=== PATIENT | female | born 1945 | race Caucasian/White ===

== ENCOUNTER → 2016-09-07 | Outpatient (CLI) | payer MEDICARE ==
[~2016-09-07] MED LIST: AMBIEN10 M1 PO; DARVOCET N 1001 TAB PO; DIFLUCAN200 MG PO; HYDROCODONE BIT1 T11 PO; SEPTRA DS 800 M1 TAB PO; Synthroid,Lev150 MCG PO; ZESTRIL10 MG PO
[2016-09-07 13:23] LABS: BASO # 0.1 10*3/uL (0.0-0.1); BASO % 0.8 % (0.0-1.0); EOS # 0.2 10*3/uL (0.0-0.4); EOS % 2.7 % (1.0-4.0); HEMATOCRIT 42.1 % (37.0-47.0); HEMOGLOBIN 13.4 g/dl (12.0-16.0); LYMPH # 2.1 10*3/uL (1.3-4.4); LYMPH % 34.6 % (27.0-41.0); MEAN CELL VOLUME 90.5 fl (81.0-99.0); MEAN CORPUSCULAR HGB 28.8 pg (27.0-31.0); MEAN CORPUSCULAR HGB CONC 31.8 g/dl (33.0-37.0); MEAN PLATELET VOLUME 10.3 fl (9.6-12.3); MONO # 0.4 10*3/uL (0.1-1.0); MONO % 7.2 % (3.0-9.0); NEUT # 3.3 10*3/uL (2.3-7.9); NEUT % 54.7 % (47.0-73.0); PLATELET COUNT AUTOMATED 224 10*3/uL (130-400); RED BLOOD COUNT 4.65 10*6/uL (4.10-5.10); RED CELL DISTRI WIDTH 13.3 % (0-14.5)
[2016-09-07 14:00] LABS: ALBUMIN 3.4 gm/dl (3.1-4.5); ALKALINE PHOSPHATASE 63 U/L (45-117); BILIRUBIN, TOTAL 0.3 mg/dl (0.2-1.0); BUN 12 mg/dl (7-24); CARBON DIOXIDE 27 mmol/L (21-32); CHLORIDE 108 mmol/L (98-107); CHOLESTEROL 180 mg/dL (<200); EST GLOM FILT AFRICAN AMERICAN > 60 ml/min; GLUCOSE 100 mg/dL (65-99); HDL CHOLESTEROL 52 mg/dl (40-60); LDL CHOLESTEROL 108 mg/dL (9-159); SGOT/AST 16 IU/L (3-35); SGPT/ALT 15 U/L (12-78); SODIUM 142 mmol/L (136-145); TOTAL PROTEIN 7.5 gm/dL (6.4-8.2); TRIGLYCERIDES 101 mg/dl (<150); VLDL CHOLESTEROL 20 mg/dL (6-40)
[2016-09-07 14:03] LABS: HEMOGLOBIN A1c 5.8 % (4.8-5.6)
== END | disposition home or self-care (01) ==
LOC: LAB 13:05
PROVIDERS: Family Medicine
DX: Z00.00 Encounter for general adult medical examination without abnormal findings (principal); E03.9 Hypothyroidism, unspecified; Z79.899 Other long term (current) drug therapy; Z85.3 Personal history of malignant neoplasm of breast; E66.9 Obesity, unspecified

== ENCOUNTER 2017-08-12 22:59 | Inpatient (IN) | payer MEDICARE ==
[~2017-08-12] VITALS: Ht 162.5 cm; Wt 107.7 kg
--- NOTE | ~2017-08-12 | EKG ---
[place], [place] ELECTROCARDIOGRAM REPORT NAME: ARNOLDO LAWTON UNIT #: [id number] ROOM: 522 DOCTOR: NEAL CLARKE,AJ BIRTHDATE: [birth year] DOS: 08/12/2017 TIME: 2302 hours. IMPRESSION: 1. Sinus rhythm. 2. Left ventricular hypertrophy. 3. Nondiagnostic Q-waves in the lateral leads. 4. Normal QT interval. AJ DE JESUS MD CM:EKGRPT:ELECTROCARDIOGRAM REPORT 1030 1058 AJ DE JESUS MD
--- NOTE | ~2017-08-12 | EKG ---
[place], [place] ELECTROCARDIOGRAM REPORT NAME: ARNOLDO LAWTON UNIT #: [id number] ROOM: 522 DOCTOR: NEAL CLARKE,AJ BIRTHDATE: [birth year] DOS: 08/13/2017 TIME: 5:35 a.m. IMPRESSION: 1. Sinus rhythm. 2. Baseline artifacts. 3. Nonspecific ST-T changes. AJ DE JESUS MD CM:EKGRPT:ELECTROCARDIOGRAM REPORT 1031 1055 AJ DE JESUS MD
--- NOTE | ~2017-08-12 | EKG ---
[place], [place] ELECTROCARDIOGRAM REPORT NAME: ARNOLDO LAWTON UNIT #: [id number] ROOM: 522 DOCTOR: NEAL CLARKE,AJ BIRTHDATE: [birth year] DOS: 08/13/2017 TIME: 2:16 a.m. IMPRESSION: 1. Sinus rhythm. 2. Left ventricular hypertrophy. 3. Sinus bradycardia. 4. Nonspecific ST-T changes. AJ DE JESUS MD CM:EKGRPT:ELECTROCARDIOGRAM REPORT 1032 1056 AJ DE JESUS MD
[2017-08-12 22:59] VITALS: BP 169/75
[2017-08-12 23:33] LABS: BASO # 0.1 10*3/uL (0.0-0.1); BASO % 0.7 % (0.0-1.0); EOS # 0.2 10*3/uL (0.0-0.4); EOS % 2.9 % (1.0-4.0); HEMATOCRIT 38.7 % (37.0-47.0); HEMOGLOBIN 12.5 g/dl (12.0-16.0); LYMPH % 39.4 % (27.0-41.0); MEAN CELL VOLUME 87.6 fl (81.0-99.0); MEAN CORPUSCULAR HGB 28.3 pg (27.0-31.0); MEAN CORPUSCULAR HGB CONC 32.3 g/dl (33.0-37.0); MEAN PLATELET VOLUME 10.3 fl (9.6-12.3); MONO # 0.7 10*3/uL (0.1-1.0); MONO % 9.2 % (3.0-9.0); NEUT # 3.6 10*3/uL (2.3-7.9); NEUT % 47.7 % (47.0-73.0); PLATELET COUNT AUTOMATED 246 10*3/uL (130-400); RED BLOOD COUNT 4.42 10*6/uL (4.10-5.10); RED CELL DISTRI WIDTH 13.3 % (0-14.5); WHITE BLOOD COUNT 7.5 10*3/uL (4.8-10.8)
[2017-08-12 23:41] LABS: ACT PARTIAL THROMBO TIME 23.7 SECONDS (20.8-31.5); INTERNATIONAL NORM RATIO 0.9 (2.0-3.5)
[2017-08-12 23:49] LABS: ALBUMIN 3.7 gm/dl (3.1-4.5); ALKALINE PHOSPHATASE 64 U/L (45-117); BUN 16 mg/dl (7-24); CHLORIDE 108 mmol/L (98-107); CREATININE 0.91 mg/dL (0.55-1.02); SGOT/AST 19 IU/L (3-35); SGPT/ALT 14 U/L (12-78); SODIUM 142 mmol/L (136-145); TOTAL PROTEIN 7.6 gm/dL (6.4-8.2)
[2017-08-12 23:50] LABS: TROPONIN I < 0.015 ng/ml (<0.045)
[2017-08-13 01:14] VITALS: BP 132/63
[2017-08-13 01:33] VITALS: BP 133/86
[2017-08-13] MEDS ORDERED: PAROXETINE20 MG PO (02:44)
[2017-08-13 05:54] LABS: BASO # 0.1 10*3/uL (0.0-0.1); BASO % 0.8 % (0.0-1.0); EOS # 0.2 10*3/uL (0.0-0.4); EOS % 3.3 % (1.0-4.0); HEMATOCRIT 38.7 % (37.0-47.0); HEMOGLOBIN 12.2 g/dl (12.0-16.0); LYMPH # 2.8 10*3/uL (1.3-4.4); LYMPH % 44.5 % (27.0-41.0); MEAN CORPUSCULAR HGB CONC 31.5 g/dl (33.0-37.0); MEAN PLATELET VOLUME 10.2 fl (9.6-12.3); MONO # 0.5 10*3/uL (0.1-1.0); MONO % 7.4 % (3.0-9.0); NEUT # 2.8 10*3/uL (2.3-7.9); NEUT % 43.7 % (47.0-73.0); PLATELET COUNT AUTOMATED 218 10*3/uL (130-400); RED BLOOD COUNT 4.35 10*6/uL (4.10-5.10); RED CELL DISTRI WIDTH 13.4 % (0-14.5); WHITE BLOOD COUNT 6.3 10*3/uL (4.8-10.8)
[2017-08-13 06:12] LABS: ALBUMIN 3.3 gm/dl (3.1-4.5); ALKALINE PHOSPHATASE 57 U/L (45-117); BUN 14 mg/dl (7-24); CHLORIDE 109 mmol/L (98-107); CHOLESTEROL 166 mg/dL (<200); CREATININE 0.88 mg/dL (0.55-1.02); FREE T4 1.38 ng/dl (0.76-1.46); HDL CHOLESTEROL 49 mg/dl (40-60); LDL CHOLESTEROL 100 mg/dL (9-159); PHOSPHOROUS 3.4 mg/dL (2.5-4.9); POTASSIUM 3.9 mmol/L (3.5-5.1); SGOT/AST 16 IU/L (3-35); SGPT/ALT 14 U/L (12-78); SODIUM 143 mmol/L (136-145); TOTAL PROTEIN 6.9 gm/dL (6.4-8.2); TRIGLYCERIDES 84 mg/dl (<150); VLDL CHOLESTEROL 17 mg/dL (6-40)
[2017-08-13 06:17] LABS: THYROID STIM HORMONE (HS) 0.647 uIU/ml (0.358-4.75)
[2017-08-13 08:00] VITALS: BP 122/77
[2017-08-13 12:00] VITALS: BP 131/66
[2017-08-13] MEDS ORDERED: NITROSTAT0.4 MG SL (13:56)
[2017-08-13] MEDS ORDERED: ASPIR LOW81 MG PO (13:56)
== END 2017-08-13 15:15 | disposition home or self-care (01) | DRG 392 ==
LOC: ED 22:59 → EDHOLD 23:54 → 5E 08-13 00:04
PROVIDERS: Family Medicine; Student in an Organized Health Care Education/Training Program
DX: K21.9 Gastro-esophageal reflux disease without esophagitis (principal); E83.41 Hypermagnesemia; E87.8 Other disorders of electrolyte and fluid balance, not elsewhere classified; E03.9 Hypothyroidism, unspecified; G47.00 Insomnia, unspecified; F33.42 Major depressive disorder, recurrent, in full remission; I10 Essential (primary) hypertension; G43.909 Migraine, unspecified, not intractable, without status migrainosus; Z85.3 Personal history of malignant neoplasm of breast; Z88.6 Allergy status to analgesic agent; Z88.8 Allergy status to other drugs, medicaments and biological substances; Z90.49 Acquired absence of other specified parts of digestive tract; Z87.891 Personal history of nicotine dependence; Z82.49 Family history of ischemic heart disease and other diseases of the circulatory system; Z79.82 Long term (current) use of aspirin; Z79.899 Other long term (current) drug therapy

== ENCOUNTER 2017-08-29 23:36 | Inpatient (IN) | payer MEDICARE ==
[~2017-08-29] VITALS: Ht 160 cm; Wt 104.3 kg
[~2017-08-29 23:36] MED LIST changes: +ASPIR LOW81 MG PO; +NITROSTAT0.4 MG SL; +PAROXETINE20 MG PO
[2017-08-29 23:50] VITALS: BP 113/58
[2017-08-30] VITALS (8 sets, daily range): BP systolic 98–138; BP diastolic 51–82
[2017-08-30 00:46] LABS: BASO % 0.3 % (0.0-1.0); HEMATOCRIT 39.1 % (37.0-47.0); HEMOGLOBIN 12.9 g/dl (12.0-16.0); LYMPH % 6.5 % (27.0-41.0); MEAN CELL VOLUME 88.1 fl (81.0-99.0); MEAN CORPUSCULAR HGB 29.1 pg (27.0-31.0); MEAN PLATELET VOLUME 10.3 fl (9.6-12.3); MONO # 1.1 10*3/uL (0.1-1.0); MONO % 7.3 % (3.0-9.0); NEUT # 12.9 10*3/uL (2.3-7.9); NEUT % 85.3 % (47.0-73.0); PLATELET COUNT AUTOMATED 184 10*3/uL (130-400); RED BLOOD COUNT 4.44 10*6/uL (4.10-5.10); RED CELL DISTRI WIDTH 13.8 % (0-14.5); WHITE BLOOD COUNT 15.1 10*3/uL (4.8-10.8)
[2017-08-30 01:06] LABS: ALBUMIN 3.1 gm/dl (3.1-4.5); CREATININE 1.19 mg/dL (0.55-1.02); POTASSIUM 3.6 mmol/L (3.5-5.1); TOTAL PROTEIN 7.5 gm/dL (6.4-8.2)
[2017-08-30 07:01] LABS: BASO % 0.2 % (0.0-1.0); HEMATOCRIT 36.8 % (37.0-47.0); LYMPH # 1.3 10*3/uL (1.3-4.4); LYMPH % 8.6 % (27.0-41.0); MEAN CELL VOLUME 86.8 fl (81.0-99.0); MEAN CORPUSCULAR HGB 28.3 pg (27.0-31.0); MEAN CORPUSCULAR HGB CONC 32.6 g/dl (33.0-37.0); MEAN PLATELET VOLUME 10.7 fl (9.6-12.3); MONO # 1.3 10*3/uL (0.1-1.0); MONO % 8.5 % (3.0-9.0); NEUT # 12.6 10*3/uL (2.3-7.9); PLATELET COUNT AUTOMATED 178 10*3/uL (130-400); RED BLOOD COUNT 4.24 10*6/uL (4.10-5.10); RED CELL DISTRI WIDTH 13.8 % (0-14.5); WHITE BLOOD COUNT 15.3 10*3/uL (4.8-10.8)
[2017-08-30 07:28] LABS: BILIRUBIN 1+ (NEGATIVE); BLOOD 1+ (NEGATIVE); CLARITY CLOUDY (CLEAR); COLOR YELLOW (YELLOW); GLUCOSE NEGATIVE (NEGATIVE); KETONE 1+ (NEGATIVE); LEUKO ESTERASE NEGATIVE (NEGATIVE); NITRITE NEGATIVE (NEGATIVE); PH 5.5 (5.0-9.0); SPECIFIC GRAVITY 1.025 (1.005-1.030)
[2017-08-30 07:33] LABS: CHLORIDE 100 mmol/L (98-107); POTASSIUM 3.4 mmol/L (3.5-5.1); SODIUM 135 mmol/L (136-145)
[2017-08-30 07:56] LABS: ALBUMIN 2.9 gm/dl (3.1-4.5); ALKALINE PHOSPHATASE 53 U/L (45-117); BUN 15 mg/dl (7-24); CHOLESTEROL 155 mg/dL (<200); CREATININE 1.05 mg/dL (0.55-1.02); FREE T4 1.77 ng/dl (0.76-1.46); HDL CHOLESTEROL 43 mg/dl (40-60); LDL CHOLESTEROL 87 mg/dL (9-159); PHOSPHOROUS 2.4 mg/dL (2.5-4.9); SGOT/AST 27 IU/L (3-35); SGPT/ALT 19 U/L (12-78); THYROID STIM HORMONE (HS) 0.444 uIU/ml (0.358-4.75); TOTAL PROTEIN 6.9 gm/dL (6.4-8.2); TRIGLYCERIDES 125 mg/dl (<150); VLDL CHOLESTEROL 25 mg/dL (6-40)
[2017-08-30 08:02] LABS: BACTERIA 1+; EPITHELIAL CELLS 15-20
[2017-08-30 08:13] LABS: VITAMIN D, 25-HYDROXY 12.5 ng/mL (30-100)
[2017-08-31] VITALS: BP 118/69
[2017-08-31 06:55] LABS: BASO # 0.1 10*3/uL (0.0-0.1); BASO % 0.6 % (0.0-1.0); EOS % 0.2 % (1.0-4.0); HEMATOCRIT 34.1 % (37.0-47.0); HEMOGLOBIN 10.9 g/dl (12.0-16.0); LYMPH # 1.4 10*3/uL (1.3-4.4); LYMPH % 12.8 % (27.0-41.0); MEAN CELL VOLUME 88.8 fl (81.0-99.0); MEAN CORPUSCULAR HGB 28.4 pg (27.0-31.0); MEAN PLATELET VOLUME 10.9 fl (9.6-12.3); MONO # 1.1 10*3/uL (0.1-1.0); MONO % 9.8 % (3.0-9.0); NEUT # 8.2 10*3/uL (2.3-7.9); NEUT % 76.1 % (47.0-73.0); PLATELET COUNT AUTOMATED 183 10*3/uL (130-400); RED BLOOD COUNT 3.84 10*6/uL (4.10-5.10); RED CELL DISTRI WIDTH 13.9 % (0-14.5); WHITE BLOOD COUNT 10.8 10*3/uL (4.8-10.8)
[2017-08-31 07:11] LABS: BUN 10 mg/dl (7-24); CHLORIDE 106 mmol/L (98-107); CREATININE 0.93 mg/dL (0.55-1.02); PHOSPHOROUS 2.2 mg/dL (2.5-4.9); POTASSIUM 3.6 mmol/L (3.5-5.1); SODIUM 139 mmol/L (136-145)
[2017-08-31 08:00] VITALS: BP 128/62
[2017-08-31 12:00] VITALS: BP 123/84
[2017-08-31] MEDS ORDERED: CIPRO500 MG PO (15:56)
[2017-08-31] MEDS ORDERED: FLAGYL500 MG PO (15:56)
[2017-08-31 16:00] VITALS: BP 112/59
[2017-08-31] MEDS ORDERED: VITAMIN D-32000 UNI1 PO (16:02)
== END 2017-08-31 19:29 | disposition home or self-care (01) | DRG 602 ==
LOC: ED 23:36 → EDHOLD 08-30 02:17 → 5E 08-30 02:17
PROVIDERS: Family Medicine; Hospitalist; Physician Assistant
DX: L03.116 Cellulitis of left lower limb (principal); N17.0 Acute kidney failure with tubular necrosis; E43 Unspecified severe protein-calorie malnutrition; K57.32 Diverticulitis of large intestine without perforation or abscess without bleeding; F33.9 Major depressive disorder, recurrent, unspecified; E83.39 Other disorders of phosphorus metabolism; Z68.41 Body mass index [BMI] 40.0-44.9, adult; K76.0 Fatty (change of) liver, not elsewhere classified; E87.6 Hypokalemia; G47.00 Insomnia, unspecified; N20.0 Calculus of kidney; D72.829 Elevated white blood cell count, unspecified; E03.9 Hypothyroidism, unspecified; K57.30 Diverticulosis of large intestine without perforation or abscess without bleeding; Z80.3 Family history of malignant neoplasm of breast; Z82.49 Family history of ischemic heart disease and other diseases of the circulatory system; Z85.3 Personal history of malignant neoplasm of breast; Z87.891 Personal history of nicotine dependence; Z90.49 Acquired absence of other specified parts of digestive tract; Z88.5 Allergy status to narcotic agent; Z88.8 Allergy status to other drugs, medicaments and biological substances; Z79.82 Long term (current) use of aspirin; Z79.899 Other long term (current) drug therapy

== ENCOUNTER → 2018-04-25 | Outpatient (CLI) | payer MEDICARE ==
[~2018-04-25] MED LIST changes: +CIPRO500 MG PO; +FLAGYL500 MG PO; +VITAMIN D-32000 UNI1 PO
[2018-04-25 14:12] LABS: BASO % 0.6 % (0.0-1.0); EOS # 0.2 10*3/uL (0.0-0.4); EOS % 2.7 % (1.0-4.0); HEMATOCRIT 40.1 % (37.0-47.0); HEMOGLOBIN 12.7 g/dl (12.0-16.0); LYMPH % 32.1 % (27.0-41.0); MEAN CELL VOLUME 89.3 fl (81.0-99.0); MEAN CORPUSCULAR HGB 28.3 pg (27.0-31.0); MEAN CORPUSCULAR HGB CONC 31.7 g/dl (33.0-37.0); MEAN PLATELET VOLUME 10.5 fl (9.6-12.3); MONO # 0.5 10*3/uL (0.1-1.0); MONO % 8.3 % (3.0-9.0); NEUT # 3.5 10*3/uL (2.3-7.9); PLATELET COUNT AUTOMATED 241 10*3/uL (130-400); RED BLOOD COUNT 4.49 10*6/uL (4.10-5.10); RED CELL DISTRI WIDTH 13.3 % (0-14.5); WHITE BLOOD COUNT 6.3 10*3/uL (4.8-10.8)
[2018-04-25 14:15] LABS: BILIRUBIN NEGATIVE (NEGATIVE); BLOOD NEGATIVE (NEGATIVE); CLARITY CLEAR (CLEAR); COLOR YELLOW (YELLOW); GLUCOSE NEGATIVE (NEGATIVE); KETONE NEGATIVE (NEGATIVE); LEUKO ESTERASE NEGATIVE (NEGATIVE); NITRITE NEGATIVE (NEGATIVE); SPECIFIC GRAVITY <= 1.005 (1.005-1.030); UROBILINOGEN 0.2 E.U./dl (0.2-1.0)
[2018-04-25 14:22] LABS: BACTERIA TRACE; EPITHELIAL CELLS TNTC; RBC 0-2 rbc/hpf (0-2); WBC 0-2 wbc/hpf (0-5)
[2018-04-25 14:45] LABS: ALBUMIN 3.6 gm/dl (3.1-4.5); BUN 10 mg/dl (7-24); CHLORIDE 105 mmol/L (98-107); CHOLESTEROL 168 mg/dL (<200); CREATININE 0.84 mg/dL (0.55-1.02); SGOT/AST 16 IU/L (3-35); SGPT/ALT 15 U/L (12-78); SODIUM 138 mmol/L (136-145)
[2018-04-25 14:52] LABS: ALKALINE PHOSPHATASE 61 U/L (45-117); HDL CHOLESTEROL 47 mg/dl (40-60); LDL CHOLESTEROL 100 mg/dL (9-159); TOTAL PROTEIN 7.6 gm/dL (6.4-8.2); TRIGLYCERIDES 105 mg/dl (<150); VLDL CHOLESTEROL 21 mg/dL (6-40)
== END | disposition home or self-care (01) ==
LOC: LAB 13:31
PROVIDERS: Nurse Practitioner Family
DX: E03.9 Hypothyroidism, unspecified (principal); E55.9 Vitamin D deficiency, unspecified; K57.90 Diverticulosis of intestine, part unspecified, without perforation or abscess without bleeding; R41.3 Other amnesia; R73.09 Other abnormal glucose

== ENCOUNTER → 2018-10-19 | Outpatient (CLI) | payer MEDICARE ==
[2018-10-19 10:14] LABS: BASO # 0.1 10*3/uL (0.0-0.1); BASO % 1.2 % (0.0-1.0); EOS # 0.2 10*3/uL (0.0-0.4); EOS % 2.7 % (1.0-4.0); HEMATOCRIT 41.7 % (37.0-47.0); HEMOGLOBIN 13.3 g/dl (12.0-16.0); LYMPH # 2.6 10*3/uL (1.3-4.4); LYMPH % 36.8 % (27.0-41.0); MEAN CELL VOLUME 90.7 fl (81.0-99.0); MEAN CORPUSCULAR HGB 28.9 pg (27.0-31.0); MEAN CORPUSCULAR HGB CONC 31.9 g/dl (33.0-37.0); MEAN PLATELET VOLUME 10.7 fl (9.6-12.3); MONO # 0.7 10*3/uL (0.1-1.0); MONO % 9.4 % (3.0-9.0); NEUT # 3.4 10*3/uL (2.3-7.9); NEUT % 49.6 % (47.0-73.0); PLATELET COUNT AUTOMATED 233 10*3/uL (130-400); RED CELL DISTRI WIDTH 13.4 % (0-14.5); WHITE BLOOD COUNT 6.9 10*3/uL (4.8-10.8)
[2018-10-19 10:33] LABS: ALBUMIN 3.5 gm/dl (3.1-4.5); ALKALINE PHOSPHATASE 60 U/L (45-117); BUN 12 mg/dl (7-24); CHLORIDE 105 mmol/L (98-107); CHOLESTEROL 179 mg/dL (<200); CREATININE 1.01 mg/dL (0.55-1.02); FREE T4 1.27 ng/dl (0.76-1.46); HDL CHOLESTEROL 43 mg/dl (40-60); LDL CHOLESTEROL 116 mg/dL (9-159); POTASSIUM 3.8 mmol/L (3.5-5.1); SGOT/AST 14 IU/L (3-35); SGPT/ALT 13 U/L (12-78); SODIUM 141 mmol/L (136-145); TOTAL PROTEIN 7.6 gm/dL (6.4-8.2); TRIGLYCERIDES 101 mg/dl (<150); VLDL CHOLESTEROL 20 mg/dL (6-40)
== END | disposition home or self-care (01) ==
LOC: LAB 09:41
PROVIDERS: Nurse Practitioner Family
DX: E03.9 Hypothyroidism, unspecified (principal); I48.91 Unspecified atrial fibrillation; R73.09 Other abnormal glucose

== ENCOUNTER 2019-05-05 09:57 | Emergency (ER) | payer MEDICARE ==
[~2019-05-05] VITALS: Ht 162.5 cm; Wt 113.4 kg
[2019-05-05 10:35] LABS: BASO # 0.1 10*3/uL (0.0-0.1); BASO % 0.8 % (0.0-1.0); EOS # 0.2 10*3/uL (0.0-0.4); HEMATOCRIT 41.7 % (37.0-47.0); HEMOGLOBIN 13.1 g/dl (12.0-16.0); LYMPH # 2.1 10*3/uL (1.3-4.4); LYMPH % 34.4 % (27.0-41.0); MEAN CELL VOLUME 92.1 fl (81.0-99.0); MEAN CORPUSCULAR HGB 28.9 pg (27.0-31.0); MEAN CORPUSCULAR HGB CONC 31.4 g/dl (33.0-37.0); MEAN PLATELET VOLUME 10.5 fl (9.6-12.3); MONO # 0.6 10*3/uL (0.1-1.0); MONO % 10.5 % (3.0-9.0); NEUT # 3.1 10*3/uL (2.3-7.9); NEUT % 51.1 % (47.0-73.0); PLATELET COUNT AUTOMATED 216 10*3/uL (130-400); RED BLOOD COUNT 4.53 10*6/uL (4.10-5.10); RED CELL DISTRI WIDTH 13.6 % (0-14.5); WHITE BLOOD COUNT 6.1 10*3/uL (4.8-10.8)
[2019-05-05 10:45] LABS: INTERNATIONAL NORM RATIO 0.9 (2.0-3.5)
[2019-05-05 10:55] LABS: ALBUMIN 3.6 gm/dl (3.1-4.5); ALKALINE PHOSPHATASE 57 U/L (45-117); BUN 13 mg/dl (7-24); CHLORIDE 106 mmol/L (98-107); CREATININE 0.86 mg/dL (0.55-1.02); POTASSIUM 3.7 mmol/L (3.5-5.1); SGOT/AST 11 IU/L (3-35); SGPT/ALT 13 U/L (12-78); SODIUM 139 mmol/L (136-145); TOTAL PROTEIN 7.4 gm/dL (6.4-8.2); TROPONIN I 0.038 ng/ml (<0.045)
== END 2019-05-05 12:07 | disposition short-term general hospital (02) ==
LOC: ED 09:57
PROVIDERS: Internal Medicine
DX: I63.9 Cerebral infarction, unspecified (principal); K21.9 Gastro-esophageal reflux disease without esophagitis; E03.9 Hypothyroidism, unspecified; R79.1 Abnormal coagulation profile; Z88.6 Allergy status to analgesic agent; Z88.8 Allergy status to other drugs, medicaments and biological substances; Z79.899 Other long term (current) drug therapy; Z87.891 Personal history of nicotine dependence; R19.7 Diarrhea, unspecified

== ENCOUNTER 2019-06-23 15:15 | Inpatient (IN) | payer MEDICARE ==
[~2019-06-23] VITALS: Ht 162.6 cm; Wt 113.6 kg
--- NOTE | ~2019-06-23 | CON ---
[place], [place] REPORT OF CONSULTATION NAME: ARNOLDO LAWTON UNIT #: [id number] ROOM: 406 DOCTOR: SY BEE MD BIRTHDATE: [birth year] DOS: 06/25/2019 ATTENDING: Dr. Perez. WHAT: Left shoulder. HOW: Fall. WHEN: 2 days ago. WHERE: At home. HISTORY OF PRESENT ILLNESS: This is a 73-year-old left-hand dominant female with history of stroke about 2 months ago. The patient was in a wheelchair at home and fell sustaining an injury to her left shoulder. The patient denies any change in her neurologic status after the fall. She is now in a sling for the left upper extremity. PAST MEDICAL HISTORY: Positive for CVA. MEDICATIONS: See chart. ALLERGIES: Please see chart. SOCIAL HISTORY: Noncontributory. FAMILY HISTORY: Noncontributory. REVIEW OF SYSTEMS: Ten-point review of systems negative from an orthopedic standpoint. PHYSICAL EXAMINATION: VITAL SIGNS: Stable. She is afebrile. LEFT UPPER EXTREMITY: The patient has no significant ecchymosis or erythema about the left shoulder. There is no deformity present. She is tender over the lateral deltoid. She has some limitation of abduction with only about 45-60 degrees present. Left hand shows difficulty with finger motion. 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 IMAGING: Initial x-rays showed minor narrowing of the humeral acromial distance. MRI scan done today showed type 2 acromion process with possible fluid or blood in the subacromial bursa, but no clearcut rotator cuff injury. IMPRESSION: Probable contusion, left subacromial bursa and rotator cuff region; status post CVA with hemiplegia left upper extremity. RECOMMENDATION: I would recommend this patient resume physical or occupational therapy to work on strengthening of the shoulder and entire left upper extremity. There is no indication for any surgical intervention at this time. We will follow with you while the patient is in the hospital. [place], [place] REPORT OF CONSULTATION NAME: ARNOLDO LAWTON UNIT #: [id number] ROOM: 406 DOCTOR: SY BEE MD BIRTHDATE: [birth year] SY BEE MD CM:CONSTR:REPORT OF CONSULTATION 1630 06/26/19 0225 interface
[2019-06-23 15:27] VITALS: BP 115/44
[2019-06-23] MEDS ORDERED: LIPITOR80 MG PO (15:43)
[2019-06-23] MEDS ORDERED: LEVOTHYROXINE150 MCG PO (15:45)
[2019-06-23] MEDS ORDERED: BIOFREEZE118 ML T (15:46)
[2019-06-23] MEDS ORDERED: CHAMOSYN OINTMEN5 GM T (15:48)
[2019-06-23] MEDS ORDERED: COLACE100 MG PO (15:49)
[2019-06-23] MEDS ORDERED: COUMADIN6 M2 PO (15:51)
[2019-06-23] MEDS ORDERED: CYMBALTA60 MG PO (15:53)
[2019-06-23] MEDS ORDERED: GABAPENTIN100 M2 PO (15:54)
[2019-06-23 16:01] LABS: BASO % 0.6 % (0.0-1.0); EOS # 0.2 10*3/uL (0.0-0.4); EOS % 3.3 % (1.0-4.0); HEMATOCRIT 41.1 % (37.0-47.0); HEMOGLOBIN 12.6 g/dl (12.0-16.0); LYMPH # 1.5 10*3/uL (1.3-4.4); LYMPH % 23.4 % (27.0-41.0); MEAN CELL VOLUME 93.2 fl (81.0-99.0); MEAN CORPUSCULAR HGB 28.6 pg (27.0-31.0); MEAN CORPUSCULAR HGB CONC 30.7 g/dl (33.0-37.0); MEAN PLATELET VOLUME 10.3 fl (9.6-12.3); MONO # 0.7 10*3/uL (0.1-1.0); MONO % 9.9 % (3.0-9.0); NEUT # 4.1 10*3/uL (2.3-7.9); NEUT % 62.6 % (47.0-73.0); PLATELET COUNT AUTOMATED 261 10*3/uL (130-400); RED BLOOD COUNT 4.41 10*6/uL (4.10-5.10); RED CELL DISTRI WIDTH 13.2 % (0-14.5); WHITE BLOOD COUNT 6.6 10*3/uL (4.8-10.8)
[2019-06-23 16:15] LABS: ACT PARTIAL THROMBO TIME 33.1 SECONDS (20.0-32.1); INTERNATIONAL NORM RATIO 1.9 (2.0-3.5)
--- NOTE | 2019-06-23 16:20 | NUR ---
REPORT RECEIVED AT 1600 FROM TIANNA LEMOS. PT IS AWAKE,SHE IS ALERT TO PERSON AND PLACE NOW. REPORTS OF LEFT SHOULDER PAIN. PT TO CAT SCAN AND THEN XRAY. JOHANNA LEMOS
[2019-06-23 16:25] LABS: BUN 11 mg/dl (7-24); CHLORIDE 109 mmol/L (98-107); CREATININE 0.87 mg/dL (0.55-1.02); POTASSIUM 3.9 mmol/L (3.5-5.1); SODIUM 142 mmol/L (136-145)
[2019-06-23 16:52] VITALS: BP 130/55
--- NOTE | 2019-06-23 16:52 | NUR ---
PT IN BED IN FOWLERS POSITION OF COMFORT PILLOW SUPPORT UNDER LEFT ARM BED IN LOWEST POSITION BED RAILS UP X 2 CALL LIGHT IN REACH
--- NOTE | 2019-06-23 18:50 | NUR ---
AN ADDITIONAL IV HAS BEEN STARTED IN PT'S RIGHT AC IN PREPARTION FOR A CTA OF THE HEAD. PT REMAINS AWAKE AND ALERT. NO DISTRESS NOTED. JOHANNA LEMOS
--- NOTE | 2019-06-23 19:22 | NUR ---
REPORT FROM JOHANNA LEMOS. PT IN CT AT THIS TIME.FAMILY IN ROOM--ZIA JACK RN
[2019-06-23 19:46] VITALS: BP 139/59
--- NOTE | 2019-06-23 19:48 | NUR ---
PT IN NO ACUTE DISTRESS AT THIS TIME. VOICES NO C/O. FAMILY AT BEDSIDE. WARM COMPRESS FROM CT SCAN ON PT'S LEFT AC WHERE IV INFILTRATED AT CT SCAN.IT IS PUFFY AND PINK---ZIA JACK RN
--- NOTE | 2019-06-23 21:29 | NUR ---
PT USED THE BEDPAN FOR 100 CC CLOUDY YELLOW.FAMILY STATES SHE CURRENTLY HAS AN UNTREATED UTI. URINE BEING SENT AT THIS TIME FOR ANALYSIS---ZIA JACK RN
[2019-06-23 21:34] LABS: BILIRUBIN NEGATIVE (NEGATIVE); BLOOD TRACE-INTACT (NEGATIVE); CLARITY SL CLOUDY (CLEAR); COLOR YELLOW (YELLOW); GLUCOSE NEGATIVE (NEGATIVE); KETONE NEGATIVE (NEGATIVE); LEUKO ESTERASE TRACE (NEGATIVE); NITRITE NEGATIVE (NEGATIVE); PH 7.5 (5.0-9.0); UROBILINOGEN 0.2 E.U./dl (0.2-1.0)
[2019-06-23 21:43] LABS: BACTERIA 2+; WBC TNTC wbc/hpf (0-5)
--- NOTE | 2019-06-23 22:07 | NUR ---
PT IS STARTING TO HAVE LEFT SHOULDER PAIN AGAIN,STATES NORCO REALLY WORKED WELL EARLIER WHEN IT WAS GIVEN. ANOTHER DOSE OF NORCO ORDERED AND GIVEN AT THIS TIME---ZIA JACK RN
--- NOTE | 2019-06-23 22:32 | NUR ---
SPOKE WITH NURSE WOODARD AT [facility] AND GAVE HER AN UPDATE ON THIS PT AND LET HER KNOW ABOUT PT ADMISSION. PT GIVEN A FOOD TRAY AT THIS TIME PER REQUEST. ---ZIA JACK RN
--- NOTE | 2019-06-23 23:30 | NUR ---
PT BEING ADMITTED. DR ANTONY IN SEEING PT AT THIS TIME...MADE HIM AWARE THAT PT'S FAMILY IS CONCERNED ABOUT HER LEFT SHOULDER AND POSSIBLY HAVING ORTHOPEDICS CONSULTED WHILE SHE IS HERE.----ZIA JACK RN
[2019-06-24 00:20] VITALS: BP 133/62
--- NOTE | 2019-06-24 00:20 | NUR ---
Time: 19 A 73 year old FEMALE admitted to 4E under services of GRETTA PAGE DO. Pt. arrived via stretcher from ER. Chief complaint: FALL. CLAUDIO HAN
[2019-06-24] MEDS ORDERED: AMBIEN5 MG PO (01:16)
[2019-06-24] MEDS ORDERED: TYLENOL325 M1 PO (01:17)
[2019-06-24] MEDS ORDERED: ASPIRIN CHEWABL81 MG PO (01:18)
[2019-06-24] MEDS ORDERED: TENORMIN25 M1 PO (01:18)
[2019-06-24] MEDS ORDERED: TRAMADOL HCL50 MG PO (01:24)
--- NOTE | 2019-06-24 01:24 | NUR ---
MEDICATIONS UPDATED PER PAPERS THAT WERE SENT WITH THE PATIENT FROM [facility].
[2019-06-24 07:36] LABS: BUN 10 mg/dl (7-24); CHLORIDE 109 mmol/L (98-107); PHOSPHOROUS 3.8 mg/dL (2.5-4.9); POTASSIUM 4.1 mmol/L (3.5-5.1); SODIUM 142 mmol/L (136-145)
[2019-06-24 07:37] LABS: INTERNATIONAL NORM RATIO 1.8 (2.0-3.5)
[2019-06-24 08:00] VITALS: BP 138/75
--- NOTE | 2019-06-24 08:11 | NUR ---
PT MEDICATED WITH PRN NORCO FOR C/O LEFT SHOULDER PAIN. PT RATES PAIN 9/10. WILL MONITOR AND REACCESS.
--- NOTE | 2019-06-24 10:00 | NUR ---
PRN NORCO APPEARS EFFECTVE. PT RESTING COMFORTABLY WTH EYES CLOSED.
[2019-06-24 16:00] VITALS: BP 105/50
[2019-06-24 20:00] VITALS: BP 95/55
--- NOTE | 2019-06-24 20:08 | NUR ---
1930 PT RESTING IN BED TALKING ON THE PHONE. LEFT SIDED WEAKNESS CONT. HEP LOCK INTACT. ICE INTACT TO LEFT SHOULDER. NO C/O'S VOICED AT PRESENT.
--- NOTE | 2019-06-24 21:30 | NUR ---
2109 ROUTINE AMBIEN GIVEN ORDERED. PERCOCET 2 PO GIVEN FOR CONT C/O'S PAIN LEFT SHOULDER. WILL MONITOR.
--- NOTE | 2019-06-24 22:11 | NUR ---
INCONTINENT OF LARGE AMOUNT URINE. ADULT DIAPER CHANGED AND LORI CARE DONE. REPOSITIONED.
--- NOTE | 2019-06-24 23:52 | NUR ---
EARLIER MEDS EFFECTIVE. RESTING IN BED WITH EYES CLOSED. APPEARS TO BE SLEEPING.
--- NOTE | 2019-06-25 03:12 | NUR ---
REMAINS SLEEPING WITHOUT DISTRESS.
--- NOTE | 2019-06-25 06:11 | NUR ---
SLEPT WELL THIS SHIFT. NO DISTRESS NOTED. ICE BAG AND SLING INTACT L SHOULDER.
[2019-06-25 07:03] LABS: BASO # 0.1 10*3/uL (0.0-0.1); EOS # 0.3 10*3/uL (0.0-0.4); EOS % 4.3 % (1.0-4.0); HEMATOCRIT 45.2 % (37.0-47.0); LYMPH # 2.4 10*3/uL (1.3-4.4); LYMPH % 38.8 % (27.0-41.0); MEAN CELL VOLUME 91.1 fl (81.0-99.0); MEAN CORPUSCULAR HGB 28.2 pg (27.0-31.0); MEAN PLATELET VOLUME 10.5 fl (9.6-12.3); MONO # 0.6 10*3/uL (0.1-1.0); MONO % 10.2 % (3.0-9.0); NEUT # 2.8 10*3/uL (2.3-7.9); NEUT % 45.5 % (47.0-73.0); PLATELET COUNT AUTOMATED 251 10*3/uL (130-400); RED BLOOD COUNT 4.96 10*6/uL (4.10-5.10); RED CELL DISTRI WIDTH 13.2 % (0-14.5); WHITE BLOOD COUNT 6.1 10*3/uL (4.8-10.8)
[2019-06-25 07:46] LABS: BUN 11 mg/dl (7-24); CHLORIDE 108 mmol/L (98-107); CHOLESTEROL 116 mg/dL (<200); CREATININE 0.83 mg/dL (0.55-1.02); PHOSPHOROUS 3.6 mg/dL (2.5-4.9); POTASSIUM 3.8 mmol/L (3.5-5.1); SGOT/AST 23 IU/L (3-35); SGPT/ALT 15 U/L (12-78); SODIUM 141 mmol/L (136-145); TOTAL PROTEIN 6.9 gm/dL (6.4-8.2); TRIGLYCERIDES 91 mg/dl (<150); VLDL CHOLESTEROL 18 mg/dL (6-40)
[2019-06-25 07:48] LABS: ALKALINE PHOSPHATASE 65 U/L (45-117); HDL CHOLESTEROL 46 mg/dl (40-60); LDL CHOLESTEROL 52 mg/dL (9-159)
[2019-06-25 07:55] LABS: ACT PARTIAL THROMBO TIME 33.6 SECONDS (20.0-32.1); INTERNATIONAL NORM RATIO 1.7 (2.0-3.5)
[2019-06-25 08:00] VITALS: BP 108/58
--- NOTE | 2019-06-25 08:10 | NUR ---
Nursing screen and Occupational Therapy referral received. Thank you. Mariza Kasper OTr/L
--- NOTE | 2019-06-25 09:00 | NUR ---
Electrologist in to talk to patient. Patient states lives at home with son and daughter in law. There are few steps in the home. Physician: Pharmacy: [facility] Home health services: none Patient's level of ADLs: MODERATE ASSIST Patient has working utilities: all working DME: Follow-up physician's appointment after d/c: will be made by hospitalist nurse director Does patient want to access PORTAL?: no Discharge plan discussed with patient, she states she normally lives at home with her son and daughter in law, she states she was sent into the [facility] and will return when medically stable to complete her physical and occupational therapy. case management will follow. KAYCEE CARCAMO
--- NOTE | 2019-06-25 10:56 | NUR ---
PHYSICAL THERAPY Physical therapy evaluation completed, 4E. Full details to follow. Moderate complexity determined after evaluation/chart review, [address]. PT to work on strength, transfers, bed mobility, gait, balance and safety. Recommending SNF at discharge. Thank you Deysi Stevens, PT, DPT
--- NOTE | 2019-06-25 10:56 | NUR ---
Occupational Therapy evaluation completed on 4 with full eval to follow. PRecautions include fall risk, LUE sling awaiting results of MRI for activity, bed alarm, +2 transfer assist, high complexity level 60584. Recommend OT per POC and inpT rehab v.s. SNF to enable max ability to function. Thank you. Mariza Kasper OTR/L
--- NOTE | 2019-06-25 14:15 | NUR ---
Discussed discharge planning with daughter (who works for [employer]). She stated in April patient had a stroke in her sleep. She was treated in [place] and then sent to [facility] acute rehab. Patient was discharged on 05/31/19 [facility] to continue strengthening exercises. While at , patient fell out of her wheel chair and injured her shoulder. Daughter would like to have patient either return to [facility] acute rehab or try [place] re[facility] prior to returning to . Contacted both acute rehab facilities and faxed referral for them to review. They are stating they are unable to accept a patient back within 30 days of having acute rehab but they are willing to review the referral. Faxed updated clinicals to [facility]/spoke to daughter and provided her with the name/phone number to [facility] to hire private aides into the home VS returning to rehab. Will follow
[2019-06-25 16:00] VITALS: BP 106/63
[2019-06-26] VITALS: BP 114/64
[2019-06-26 08:00] VITALS: BP 124/70
--- NOTE | 2019-06-26 09:00 | NUR ---
PHYSICAL THERAPY Patient seen this am 1:1 for therapy visit and was supine in bed upon therapist arrival. Patient identified by name / and presents with L arm sling, reporting 6/10 shoulder pain. Patient sling adjusted for comfort and pain control as patient reports improved L shoulder support, decreased c/o pain 4/10. Patient transfers supine to sit EOB with MOD A, then sit to stand MIN A, ambulating BIOMATHEMATICIAN/MIN, 10' x 2, demonstrating very cautious "step to" gait pattern. Patient fatigues quickly needing a brief seated rest break prior to completion of gait ex. Patient returned to Supine in bed and remained with call light, tray table, telephone, pillow under elbow for L shoulder support and bed alarm for safety. Will continue per POC as tolerated, total treatment time 15 minutes. Fuentes Gaytan, CHIROPRACTIC TEACHER
--- NOTE | 2019-06-26 09:00 | NUR ---
case management visits with patient, life care planner is working with patient and her daughter regarding discharge plan, case management will follow
--- NOTE | 2019-06-26 09:10 | NUR ---
OT NOTE Pt was seen this A.M. 1:1 for 25 minute OT session. Upon arrival pt was supine in bed. Pt identified by name and and had complaints of 6/10 L shoulder pain at start of session. Pt presented to therapy with LUE sling in place which was no proper fit. Donned pt's sling for proper fit and educated pt. Pt transferred supine to sit EOB with modA. Challenged pt's dynamic sitting balance needed for increased I and enhanced safety and pt was able to maintain F- sitting balance requiring Marycarmen and/or UE support while weight shifting, crossing midline, and reaching over all planes. Pt was guarded throghout due to fear of falling. Pt completed multiple sit to stand transfers from bed level with Marycarmen SOCIAL MEDIA COORDINATOR. Challenged pt's static standing tolerance needed for increased I in self care tasks and functional transfers, pt was able to tolerate aprox 2 minutes at a time before sitting due to fatigue. Pt then transferred back into bed sit to supine with modA. There she was left with call light in hand, tray table in place, and bed alarm activated for safety. Continue with rec D/C plan to inpatient rehab versus SNF. NILAM Diaz/Alisha
--- NOTE | 2019-06-26 11:45 | NUR ---
[facility] and [facility] acute rehab facilities are unable to accept this patient since it has been less that 30 days in an acute rehab facility. Spoke with daughter who stated she would like patient to go to [facility] in [place] instead of returning to [facility]. The [place] pass[place]rr has been [place]. We are waiting for clearance prior to patient being discharged.
[2019-06-26 12:00] VITALS: BP 128/72
--- NOTE | 2019-06-26 13:10 | NUR ---
PHYSICAL THERAPY Patient seen this pm 1:1 for therapy visit and was resting supine in bed upon therapist arrival. Patient identified by name / and presents with L arm sling while remaining NWB on L UE. Patient transfers supine to sit EOB MIN A and introduced to zulay walker for gait ex. Patient educated on safe step sequence and transfers sit to stand MIN A x 1. Patient ambulated with use of R side zulay walker, CGA, 20'x 1, demonstrating very slow stiven and decreased stride. Patient stated she felt really comfortable and more stable using zulay walker as compared OSTEOPATHIC NEUROLOGIST. Patient returned to supine in bed and remained with call light, tray table and bed alarm for safety. Will continue per POC as tolerated, total treatment time 14 minutes. Fuentes Gaytan, CENTRIFUGAL WAX MOLDER
--- NOTE | 2019-06-26 13:17 | NUR ---
Patient's [place] pass[place]rr has cleared, patient is ok to go to [facility] in [place] if medically stable for discharge.
[2019-06-26] MEDS ORDERED: CIPRO500 MG PO (14:32)
[2019-06-26] MEDS ORDERED: NORCO 5-325 TA1 EACH PO (14:33)
--- NOTE | 2019-06-26 15:13 | NUR ---
Patient is discharged to [facility], transportation scheduled for between 4 and 4:30. DC orders faxed, [place], pantry steward/stewardess/nursing notified. Daughter notified. Sundeep johansen also stated they are experiencing a lot of calls right now so if that time changes they will notify pantry steward/stewardess desk.
--- NOTE | 2019-06-26 15:30 | NUR ---
PT SON IN ROOM AND AWARE OF DISCHARGE TO [facility].
--- NOTE | 2019-06-26 15:43 | NUR ---
PT REQUESTED AND WAS MEDICATED WITH PERCOCET FOR C/O LEFT SHOULDER PAIN. CALL LIGHT IN REACH. WILL MONITOR
--- NOTE | 2019-06-26 16:02 | NUR ---
REPORT CALLED TO [facility].
--- NOTE | 2019-06-26 17:01 | NUR ---
Discharge instructions reviewed with patient/family. Patient receptive and verbalizes understanding. Follow-up care arranged. Written instructions given to patient/family. DEANDRA FOSTER
--- NOTE | 2019-06-27 07:58 | NUR ---
PHYSICAL THERAPY CO-SIGN I approve of the Physical Therapy notes written above. Deysi Stevens, PT, DPT
--- NOTE | 2019-06-27 12:00 | NUR ---
OCCUPATIONAL THERAPY CO-SIGN I approve of the Occupational Therapy notes written above. CORINNA PEACOCK OTR/Alisha
== END 2019-06-26 17:01 | disposition other institution (70) | DRG 690 ==
LOC: ED 15:15 → 4E 23:23 → EDHOLD 23:23 → 4E 23:50
PROVIDERS: Nurse Practitioner Family; Student in an Organized Health Care Education/Training Program; ADMIT Family Medicine
DX: N30.01 Acute cystitis with hematuria (principal); I69.354 Hemiplegia and hemiparesis following cerebral infarction affecting left non-dominant side; Z68.41 Body mass index [BMI] 40.0-44.9, adult; R00.1 Bradycardia, unspecified; R79.1 Abnormal coagulation profile; K21.9 Gastro-esophageal reflux disease without esophagitis; E03.9 Hypothyroidism, unspecified; G47.00 Insomnia, unspecified; F32.9 Major depressive disorder, single episode, unspecified; I48.91 Unspecified atrial fibrillation; I10 Essential (primary) hypertension; E78.5 Hyperlipidemia, unspecified; M19.90 Unspecified osteoarthritis, unspecified site; E87.8 Other disorders of electrolyte and fluid balance, not elsewhere classified; R73.9 Hyperglycemia, unspecified; E66.01 Morbid (severe) obesity due to excess calories; K76.0 Fatty (change of) liver, not elsewhere classified; G90.09 Other idiopathic peripheral autonomic neuropathy; I48.0 Paroxysmal atrial fibrillation; M67.912 Unspecified disorder of synovium and tendon, left shoulder; T44.7X5A Adverse effect of beta-adrenoreceptor antagonists, initial encounter; Z88.6 Allergy status to analgesic agent; Z88.8 Allergy status to other drugs, medicaments and biological substances; Z79.82 Long term (current) use of aspirin; Z79.899 Other long term (current) drug therapy; Z79.01 Long term (current) use of anticoagulants; Z85.3 Personal history of malignant neoplasm of breast; Z90.49 Acquired absence of other specified parts of digestive tract; Z98.51 Tubal ligation status; Z90.710 Acquired absence of both cervix and uterus; Z87.891 Personal history of nicotine dependence; Z82.49 Family history of ischemic heart disease and other diseases of the circulatory system; Z80.3 Family history of malignant neoplasm of breast; I69.391 Dysphagia following cerebral infarction; I69.30 Unspecified sequelae of cerebral infarction; Y92.89 Other specified places as the place of occurrence of the external cause; W19.XXXA Unspecified fall, initial encounter

== ENCOUNTER → 2020-06-03 | Outpatient (CLI) | payer MEDICARE ==
[~2020-06-03] MED LIST changes: +AMBIEN5 MG PO; +ASPIRIN CHEWABL81 MG PO; +BIOFREEZE118 ML T; +CHAMOSYN OINTMEN5 GM T; +COLACE100 MG PO; +COUMADIN6 M2 PO; +CYMBALTA60 MG PO; +GABAPENTIN100 M2 PO; +LEVOTHYROXINE150 MCG PO; +LIPITOR80 MG PO; +NORCO 5-325 TA1 EACH PO; +TENORMIN25 M1 PO; +TRAMADOL HCL50 MG PO; +TYLENOL325 M1 PO
[2020-06-03 12:19] LABS: BASO # 0.1 10*3/uL (0.0-0.1); BASO % 0.9 % (0.0-1.0); EOS # 0.2 10*3/uL (0.0-0.4); EOS % 2.8 % (1.0-4.0); HEMATOCRIT 42.3 % (37.0-47.0); LYMPH # 1.6 10*3/uL (1.3-4.4); LYMPH % 30.3 % (27.0-41.0); MEAN CELL VOLUME 89.2 fl (81.0-99.0); MEAN CORPUSCULAR HGB 27.6 pg (27.0-31.0); MEAN PLATELET VOLUME 10.7 fl (9.6-12.3); MONO # 0.4 10*3/uL (0.1-1.0); MONO % 6.7 % (3.0-9.0); NEUT # 3.2 10*3/uL (2.3-7.9); NEUT % 59.1 % (47.0-73.0); PLATELET COUNT AUTOMATED 248 10*3/uL (130-400); RED BLOOD COUNT 4.74 10*6/uL (4.10-5.10); RED CELL DISTRI WIDTH 13.9 % (0-14.5); WHITE BLOOD COUNT 5.3 10*3/uL (4.8-10.8)
[2020-06-03 12:28] LABS: INTERNATIONAL NORM RATIO 1.8 (2.0-3.5)
[2020-06-03 12:39] LABS: CHLORIDE 110 mmol/L (98-107); POTASSIUM 3.8 mmol/L (3.5-5.1); SODIUM 143 mmol/L (136-145)
[2020-06-03 12:50] LABS: ALBUMIN 3.5 gm/dl (3.1-4.5); ALKALINE PHOSPHATASE 64 U/L (45-117); BILIRUBIN, DIRECT < 0.1 mg/dL (0.0-0.2); BUN 10 mg/dl (7-24); CHOLESTEROL 145 mg/dL (<200); CREATININE 0.91 mg/dL (0.55-1.02); HDL CHOLESTEROL 50 mg/dl (40-60); LDL CHOLESTEROL 71 mg/dL (9-159); SGOT/AST 17 IU/L (3-35); SGPT/ALT 13 U/L (12-78); TOTAL IRON BINDING CAPACITY 282 ug/dl (250-450); TOTAL PROTEIN 7.7 gm/dL (6.4-8.2); TRIGLYCERIDES 121 mg/dl (<150); VLDL CHOLESTEROL 24 mg/dL (6-40)
[2020-06-03 13:54] LABS: VITAMIN D, 25-HYDROXY 71.9 ng/mL (30-100)
[2020-06-03 13:55] LABS: FERRITIN 71.6 ng/mL (10.0-291.0)
== END | disposition home or self-care (01) ==
LOC: LAB 11:36
PROVIDERS: ATTEND Family Medicine
DX: E55.9 Vitamin D deficiency, unspecified (principal); R73.09 Other abnormal glucose; D64.9 Anemia, unspecified; E78.49 Other hyperlipidemia; Z79.01 Long term (current) use of anticoagulants

== ENCOUNTER → 2020-06-20 | Outpatient (CLI) | payer MEDICARE ==
[2020-06-20 19:11] LABS: INTERNATIONAL NORM RATIO 2.3 (2.0-3.5)
== END | disposition home or self-care (01) ==
LOC: LAB 18:20
PROVIDERS: ATTEND Nurse Practitioner Family
DX: H11.30 Conjunctival hemorrhage, unspecified eye (principal)

== ENCOUNTER → 2020-12-22 | Outpatient (CLI) | payer MEDICARE ==
[2020-12-22 15:14] LABS: BASO # 0.1 10*3/uL (0.0-0.1); EOS # 0.1 10*3/uL (0.0-0.4); EOS % 1.3 % (1.0-4.0); HEMATOCRIT 41.7 % (37.0-47.0); LYMPH # 2.1 10*3/uL (1.3-4.4); LYMPH % 34.4 % (27.0-41.0); MEAN CELL VOLUME 89.1 fl (81.0-99.0); MEAN CORPUSCULAR HGB 28.4 pg (27.0-31.0); MEAN CORPUSCULAR HGB CONC 31.9 g/dl (33.0-37.0); MEAN PLATELET VOLUME 10.5 fl (9.6-12.3); MONO # 0.6 10*3/uL (0.1-1.0); MONO % 9.3 % (3.0-9.0); NEUT # 3.3 10*3/uL (2.3-7.9); NEUT % 53.8 % (47.0-73.0); PLATELET COUNT AUTOMATED 245 10*3/uL (130-400); RED BLOOD COUNT 4.68 10*6/uL (4.10-5.10); RED CELL DISTRI WIDTH 13.8 % (0-14.5)
[2020-12-22 15:27] LABS: ALBUMIN 3.7 gm/dl (3.1-4.5); ALKALINE PHOSPHATASE 66 U/L (45-117); BUN 12 mg/dl (7-24); CHLORIDE 105 mmol/L (98-107); CHOLESTEROL 225 mg/dL (<200); CREATININE 0.94 mg/dL (0.55-1.02); IRON 60 ug/dL (50-170); LDL CHOLESTEROL 150 mg/dL (9-159); POTASSIUM 4.2 mmol/L (3.5-5.1); SGOT/AST 16 IU/L (3-35); SGPT/ALT 16 U/L (12-78); SODIUM 140 mmol/L (136-145); TOTAL IRON BINDING CAPACITY 262 ug/dl (250-450); TOTAL PROTEIN 7.5 gm/dL (6.4-8.2); TRIGLYCERIDES 125 mg/dl (<150)
[2020-12-22 15:34] LABS: FREE T4 1.38 ng/dl (0.76-1.46); THYROID STIM HORMONE (HS) 0.612 uIU/ml (0.358-4.75)
[2020-12-22 16:19] LABS: VITAMIN D, 25-HYDROXY 63.3 ng/mL (30-100)
[2020-12-22 16:20] LABS: FERRITIN 91.1 ng/mL (10.0-291.0)
== END | disposition home or self-care (01) ==
LOC: LAB 14:38
PROVIDERS: ATTEND Family Medicine
DX: J43.9 Emphysema, unspecified (principal); E55.9 Vitamin D deficiency, unspecified; E03.9 Hypothyroidism, unspecified; I48.91 Unspecified atrial fibrillation; E78.49 Other hyperlipidemia; R73.09 Other abnormal glucose; D64.9 Anemia, unspecified

== ENCOUNTER → 2021-09-28 | Outpatient (CLI) | payer MEDICARE | END | disposition home or self-care (01) | LOC: CARD 15:54 | PROVIDERS: ATTEND Internal Medicine Cardiovascular Disease | DX: Z01.810 Encounter for preprocedural cardiovascular examination (principal) ==

== ENCOUNTER → 2022-03-08 | Outpatient (CLI) | payer MEDICARE ==
[2022-03-08 16:22] LABS: BASO % 0.8 % (0.0-1.0); EOS # 0.1 10*3/uL (0.0-0.4); EOS % 2.5 % (1.0-4.0); HEMATOCRIT 42.1 % (37.0-47.0); LYMPH # 1.8 10*3/uL (1.3-4.4); LYMPH % 35.5 % (27.0-41.0); MEAN CELL VOLUME 88.6 fl (81.0-99.0); MEAN CORPUSCULAR HGB 27.4 pg (27.0-31.0); MEAN CORPUSCULAR HGB CONC 30.9 g/dl (33.0-37.0); MEAN PLATELET VOLUME 10.1 fl (9.6-12.3); MONO # 0.5 10*3/uL (0.1-1.0); MONO % 9.1 % (3.0-9.0); NEUT # 2.7 10*3/uL (2.3-7.9); NEUT % 51.9 % (47.0-73.0); PLATELET COUNT AUTOMATED 259 10*3/uL (130-400); RED BLOOD COUNT 4.75 10*6/uL (4.10-5.10); RED CELL DISTRI WIDTH 13.6 % (0-14.5); WHITE BLOOD COUNT 5.2 10*3/uL (4.8-10.8)
[2022-03-08 16:39] LABS: ALKALINE PHOSPHATASE 58 U/L (45-117); BUN 11 mg/dl (7-24); CHLORIDE 109 mmol/L (98-107); CHOLESTEROL 137 mg/dL (<200); CREATININE 0.79 mg/dL (0.55-1.02); LDL CHOLESTEROL 69 mg/dL (9-159); POTASSIUM 4.1 mmol/L (3.5-5.1); SGOT/AST 17 IU/L (3-35); SGPT/ALT 13 U/L (12-78); SODIUM 143 mmol/L (136-145); TOTAL PROTEIN 7.3 gm/dL (6.4-8.2); TRIGLYCERIDES 81 mg/dl (<150)
== END | disposition home or self-care (01) ==
LOC: LAB 15:44
PROVIDERS: ATTEND Family Medicine
DX: E78.49 Other hyperlipidemia (principal); D64.9 Anemia, unspecified; E55.9 Vitamin D deficiency, unspecified; E03.9 Hypothyroidism, unspecified; R73.09 Other abnormal glucose; I48.91 Unspecified atrial fibrillation

== ENCOUNTER → 2022-12-06 | Outpatient (CLI) | payer MEDICARE ==
[2022-12-06 10:24] LABS: BASO # 0.1 10*3/uL (0.0-0.1); BASO % 0.8 % (0.0-1.0); EOS # 0.2 10*3/uL (0.0-0.4); EOS % 2.5 % (1.0-4.0); HEMATOCRIT 42.6 % (37.0-47.0); LYMPH # 2.2 10*3/uL (1.3-4.4); LYMPH % 33.5 % (27.0-41.0); MEAN CELL VOLUME 87.1 fl (81.0-99.0); MEAN PLATELET VOLUME 10.7 fl (9.6-12.3); MONO # 0.6 10*3/uL (0.1-1.0); NEUT # 3.5 10*3/uL (2.3-7.9); PLATELET COUNT AUTOMATED 245 10*3/uL (130-400); RED BLOOD COUNT 4.89 10*6/uL (4.10-5.10); RED CELL DISTRI WIDTH 13.8 % (0-14.5); WHITE BLOOD COUNT 6.5 10*3/uL (4.8-10.8)
[2022-12-06 10:51] LABS: ALKALINE PHOSPHATASE 63 U/L (46-116); BUN 10 mg/dl (9-23); CHLORIDE 105 mmol/L (98-107); CHOLESTEROL 140 mg/dL (<200); LDL CHOLESTEROL 77 mg/dL (9-159); POTASSIUM 4.1 mmol/L (3.4-5.1); THYROID STIM HORMONE (HS) 0.279 uIU/ml (0.550-4.780); TRIGLYCERIDES 87 mg/dl (<150)
[2022-12-06 11:05] LABS: SGPT/ALT < 7 U/L (10-49)
== END | disposition home or self-care (01) ==
LOC: LAB 09:26
PROVIDERS: ATTEND Family Medicine
DX: I63.9 Cerebral infarction, unspecified (principal); I48.91 Unspecified atrial fibrillation; E78.49 Other hyperlipidemia; D64.9 Anemia, unspecified; R73.03 Prediabetes; E55.9 Vitamin D deficiency, unspecified

== ENCOUNTER → 2023-07-07 | Outpatient (CLI) | payer MEDICARE ==
[2023-07-07 13:48] LABS: BUN 6 mg/dl (9-23); CHLORIDE 107 mmol/L (98-107); POTASSIUM 4.3 mmol/L (3.4-5.1)
== END | disposition home or self-care (01) ==
LOC: LAB 00:46 → CARD 12:00
PROVIDERS: ATTEND Internal Medicine Cardiovascular Disease
DX: I08.3 Combined rheumatic disorders of mitral, aortic and tricuspid valves (principal); I48.91 Unspecified atrial fibrillation; E03.9 Hypothyroidism, unspecified; I63.9 Cerebral infarction, unspecified; E66.9 Obesity, unspecified; M17.12 Unilateral primary osteoarthritis, left knee; R60.0 Localized edema; Z79.01 Long term (current) use of anticoagulants